=== PATIENT | female | born 1995 | race African-American/Black ===

== ENCOUNTER 2021-07-14 11:34 | Emergency (ER) | payer BC ==
[~2021-07-14] VITALS: Ht 162.6 cm; Wt 61.0 kg
[2021-07-14] MEDS ORDERED: METOCLOPRAMIDE HCL 10MG/2ML VIAL IV ONE (12:30)
[2021-07-14] MEDS ORDERED: KETOROLAC 30MG/ML VIAL IV ONE (12:30)
[2021-07-14 12:33] LABS: EOSINOPHILS % 10.3 % (0.0-5.0); HEMATOCRIT. 39.9 % (36.0-48.0); HEMOGLOBIN. 13.5 g/dL (12.0-16.0); LYMPHOCYTES % 17.3 % (20.0-50.0); MEAN CORPUSCULAR VOLUME 85.8 fL (81.0-99.0); MEAN PLATELET VOLUME 9.7 fl (7.4-10.4); NEUTROPHILS % 64.4 % (40.0-76.0); PLATELET 193 x1000/uL (130-400); RED BLOOD CELL COUNT 4.65 mill/uL (4.2-5.4); RED CELL DISTRIBUTION WIDTH 13.7 % (11.6-14.6)
[2021-07-14 12:41] LABS: CHLORIDE 107 mEq/L (98-107)
[2021-07-14] MEDS ORDERED: METOCLOPRAMIDE HCL 10MG TABLET PO ONE (14:00)
[2021-07-14] MEDS ORDERED: IBUPROFEN 400MG TABLET PO ONE (14:00)
[2021-07-14 14:02] VITALS: BP 136/81
== END 2021-07-14 14:35 | disposition home or self-care (01) ==
LOC: ER 11:34
DX: R55 Syncope and collapse (principal)
CPT/HCPCS: 36415; 70450; 71045; 80053; 84484; 85025; 93005; 99285; J8597

== ENCOUNTER 2022-10-31 10:55 | Emergency (ER) | payer BC ==
[~2022-10-31] VITALS: Ht 160 cm; Wt 61.0 kg
[2022-10-31 11:18] VITALS: BP 119/85
[2022-10-31] MEDS ORDERED: METOCLOPRAMIDE HCL 10MG/2ML VIAL IV ONE (12:15)
[2022-10-31] MEDS ORDERED: SODIUM CHLORIDE 0.9% 1,000 ML IV ONE (12:15)
[2022-10-31 13:06] LABS: BASOPHILS % 0.7 % (0.0-2.0); EOSINOPHILS % 4.8 % (0.0-5.0); HEMATOCRIT. 40.7 % (36.0-48.0); HEMOGLOBIN. 13.8 g/dL (12.0-16.0); LYMPHOCYTES % 16.1 % (20.0-50.0); MEAN CORPUSCULAR HEMOGLOBIN 29.5 pg (28.0-32.0); MEAN CORPUSCULAR VOLUME 87.2 fL (81.0-99.0); MEAN PLATELET VOLUME 10.8 fl (7.4-10.4); MONOCYTES % 6.5 % (2.0-8.0); NEUTROPHILS % 71.9 % (40.0-76.0); PLATELET 222 x1000/uL (130-400); RED BLOOD CELL COUNT 4.67 mill/uL (4.2-5.4)
[2022-10-31 13:12] LABS: CHLORIDE 107 mEq/L (98-107)
[2022-10-31 14:22] LABS: B-HCG QUANTITATIVE 59323 mIU/mL (<3)
[2022-10-31 14:29] LABS: CLARITY URINE CLEAR (CLEAR); COLOR URINE YELLOW (YELLOW); KETONES URINE 4+ (NEGATIVE); LEUKOCYTE ESTERASE URINE NEGATIVE (NEGATIVE); NITRITE URINE NEGATIVE (NEGATIVE); OCCULT BLOOD URINE NEGATIVE (NEGATIVE); PH URINE 6.5 (4.5-8.0); PROTEIN URINE NEGATIVE (NEGATIVE); SPECIFIC GRAVITY URINE 1.019 (1.005-1.030)
[2022-10-31] MEDS ORDERED: METO5TAB86 MT (15:01)
== END 2022-10-31 15:20 | disposition home or self-care (01) ==
LOC: ER 10:55
DX: O21.9 Vomiting of pregnancy, unspecified (principal); E86.0 Dehydration; F41.9 Anxiety disorder, unspecified; F32.9 Major depressive disorder, single episode, unspecified; Z3A.01 Less than 8 weeks gestation of pregnancy
CPT/HCPCS: 36415; 76801; 76817; 80053; 81003; 81025; 83690; 84702; 85025; 86850; 86900; 86901; 96361; 96374; 99284; J2765; J7030